=== PATIENT | male | born 1970 | race Caucasian/White ===

== ENCOUNTER 2021-02-02 22:26 | Emergency (ER) | payer SELFPAY | END 2021-02-03 00:10 | disposition home or self-care (01) | LOC: NAV ERS 22:26 | DX: S82.101A Unspecified fracture of upper end of right tibia, initial encounter for closed fracture (principal); M10.9 Gout, unspecified; Z79.899 Other long term (current) drug therapy; W22.8XXA Striking against or struck by other objects, initial encounter ==